=== PATIENT | female | born 1990 ===

== ENCOUNTER 2018-11-14 21:39 | Emergency (ER) | payer SELFPAY ==
[~2018-11-14] VITALS: Ht 172.7 cm; Wt 99.5 kg
[2018-11-14 21:45] VITALS: BP 101/68; PULSE 101; RESP 20; Ht 172.7 cm; Wt 99.5 kg
== END 2018-11-14 22:40 | disposition left against medical advice (07) ==
LOC: FTE 21:39
DX: Z53.21 Procedure and treatment not carried out due to patient leaving prior to being seen by health care provider (principal)